=== PATIENT | female | born 1965 | race Caucasian/White ===

== ENCOUNTER 2017-06-04 21:11 | Emergency (ER) | payer MEDICAID, OTHER ==
[2017-06-04 21:45] LABS: BASO % 0.2 % (0.0-2.0); EOS # 0.1 K/uL (0.0-0.7); EOS % 0.6 % (0.0-4.0); HEMATOCRIT 35.7 % (34.0-47.0); LYMPH # 2.5 K/uL (1.0-4.3); LYMPH % 16.9 % (20.0-40.0); MEAN CELL VOLUME 73.8 fL (81.0-99.0); MEAN CORPUSCULAR HGB CONC 31.2 g/dL (33.0-37.0); MEAN PLATELET VOLUME 9.6 fL (7.2-11.7); MONO # 1.9 K/uL (0.0-0.8); MONO % 12.6 % (0.0-10.0); RED CELL DISTRIBUTION WIDTH 14.9 % (11.5-14.5); WHITE BLOOD COUNT 14.9 K/uL (4.8-10.8)
--- NOTE | 2017-06-04 21:47 | C.PDOC ---
History Of Present Illness 52 y/o female with a hx of thyroidectomy and a thyroid nodule, c/o anxiety and trouble breathing that began tonight. Patient reports yesterday she was caught in the rain and developed body aches, chills, fever, and sore throat. Then tonight while chewing she felt numbness to the right side of her face and felt and pain to the submandibular area. Patient notes having a hx of anxiety in the past with similar symptoms. Denies chest pain, palpitations, lightheadedness, diaphoresis, lower extremity swelling or pain, or jaw pain. Time Seen by Provider: 06/04/17 21:19 Chief Complaint (Nursing): Shortness Of Breath History Per: Patient History/Exam Limitations: no limitations Onset/Duration Of Symptoms: Hrs (Tonight) Current Symptoms Are (Timing): Still Present Severity: Mild Recent travel outside of the [place]: No Additional History Per: Patient Past Medical History Reviewed: Historical Data, Nursing Documentation, Vital Signs Vital Signs: Last Vital Signs Temp Pulse 104 H 06/04/17 21:17 Resp 20 06/04/17 21:39 BP 115/75 06/04/17 21:17 Pulse Ox 100 06/04/17 23:24 - Medical History PMH: HTN Family History: States: Unknown Family Hx - Social History Hx Alcohol Use: No Hx Substance Use: No Review Of Systems Except As Marked, All Systems Reviewed And Found Negative. Constitutional: Positive for: Fever, Chills, Other (Body aches). Negative for: Sweats ENT: Positive for: Throat Pain, Other Cardiovascular: Negative for: Chest Pain, Palpitations, Light Headedness Respiratory: Positive for: Shortness of Breath Musculoskeletal: Negative for: Leg Pain, Foot Pain Psych: Positive for: Anxiety Physical Exam - Physical Exam Appears: Non-toxic, No Acute Distress Skin: Warm, Dry Head: Atraumatic, Normacephalic Eye(s): bilateral: Normal Inspection Ear(s): Bilateral: Normal Throat: Other (Throat inflammation) Lymphatic: Other (Submandibular nodes swelling and tenderness, more so on the right.) Cardiovascular: Rhythm Regular Respiratory: Normal Breath Sounds, No Rales, No Rhonchi, No Wheezing Gastrointestinal/Abdominal: Soft, No Tenderness Neurological/Psych: Oriented x3 ED Course And Treatment - Laboratory Results Result Diagrams: 06/04/17 21:36 06/04/17 21:36 Lab Interpretation: No Acute Changes (Mildly elevated WBC 14.9 with normal diff. ) O2 Sat by Pulse Oximetry: 100 (RA) Pulse Ox Interpretation: Normal - Radiology CXR: Interpreted by Me CXR Interpretation: Yes: No Acute Disease - CT Scan/US Neck Other Rad Studies (CT/US): Interpreted By Me, Read By Radiologist CT/US Interpretation: EXAM: CT Neck With Intravenous Contrast. CLINICAL HISTORY: 52 years old, female; Pain; Neck pain; Prior surgery; Surgery type: Thyroidectomy; Additional info: S/P thyroidectomy, neck pain. TECHNIQUE: Axial computed tomography images of the neck with intravenous contrast. All CT scans at this. facility use one or more dose reduction techniques, viz.: automated exposure control; ma/kV. adjustment per patient size (including targeted exams where dose is matched to indication; i.e. head);. or iterative reconstruction technique. Coronal and sagittal reformatted images were created and reviewed. CONTRAST: 100 mL of [id number] administered intravenously. COMPARISON: No relevant prior studies available. FINDINGS: Nasopharynx: Unremarkable. Oropharynx: Unremarkable. No significant tonsillar enlargement. No peritonsillar abscess. Hypopharynx: Unremarkable. Larynx: Unremarkable. Normal epiglottis. Trachea: Unremarkable. Retropharyngeal space: Unremarkable. Submandibular/parotid glands: Unremarkable. Glands are normal in size. Thyroid: Surgically absent. Bones/joints: No acute fracture. Soft tissues: Unremarkable. Vasculature: No acute findings. Lymph nodes: Unremarkable. No lymphadenopathy. Lung apices: Unremarkable as visualized. IMPRESSION: No significant pathology, as detailed above. Reevaluation Time: 23:26 Reassessment Condition: Improved (Patient remains comfortable in ED.) Medical Decision Making Medical Decision Making: Impression: * Anxiety and trouble breathing that began tonight. Plans: * CT neck soft tissue w/ constrast * Blood labs * CXR * Rapid strep Disposition Counseled Patient/Family Regarding: Studies Performed, Diagnosis, Need For Followup - Disposition Referrals: [facility] [Outside] Disposition: HOME/ ROUTINE Disposition Time: 23:26 Condition: IMPROVED Instructions: Upper Respiratory Infection (ED) Forms: [facility] (French) - Clinical Impression Clinical Impression: Dyspnea, URI (upper respiratory infection) - Scribe Statement The provider has reviewed the documentation as recorded by the Scribe Mohamed stephanie All medical record entries made by the Wisam were at my direction and personally dictated by me. I have reviewed the chart and agree that the record accurately reflects my personal performance of the history, physical exam, medical decision making, and the department course for this patient. I have also personally directed, reviewed, and agree with the discharge instructions and disposition.
[2017-06-04 21:51] LABS: CHLORIDE 96 mmol/L (98-107)
[2017-06-04 21:52] LABS: POTASSIUM 3.9 mmol/L (3.6-5.2); SODIUM 132 mmol/L (132-148)
[2017-06-04 21:54] LABS: AST/SGOT 24 U/L (14-36); BILIRUBIN,TOTAL 0.4 mg/dL (0.2-1.3); CARBON DIOXIDE 23 mmol/L (22-30); GFR AFRICAN-AMERICAN > 60
[2017-06-04 21:55] LABS: ALB/GLOB RATIO 1.1 (1.0-2.1); ALKALINE PHOSPHATASE 85 U/L (38-126); ALT/SGPT 24 U/L (9-52); BLOOD UREA NITROGEN 12 mg/dL (7-17); CALCIUM 9.1 mg/dl (8.6-10.4); GLUCOSE,RANDOM 106 mg/dL (65-105); TOTAL PROTEIN 8.5 g/dL (6.3-8.3)
[2017-06-04 22:37] LABS: FREE T4 1.78 ng/dL (0.78-2.19)
[2017-06-04 22:51] LABS: THYROID STIMULATING HORMONE < 0.02 mIU/L (0.46-4.68)
--- NOTE | 2017-06-04 23:16 | CT ---
EXAM: CT Neck With Intravenous Contrast CLINICAL HISTORY: 52 years old, female; Pain; Neck pain; Prior surgery; Surgery type: Thyroidectomy; Additional info: S/P thyroidectomy, neck pain TECHNIQUE: Axial computed tomography images of the neck with intravenous contrast. All CT scans at this facility use one or more dose reduction techniques, viz.: automated exposure control; ma/kV adjustment per patient size (including targeted exams where dose is matched to indication; i.e. head); or iterative reconstruction technique. Coronal and sagittal reformatted images were created and reviewed. CONTRAST: 100 mL of [id number] administered intravenously. COMPARISON: No relevant prior studies available. FINDINGS: Nasopharynx: Unremarkable. Oropharynx: Unremarkable. No significant tonsillar enlargement. No peritonsillar abscess. Hypopharynx: Unremarkable. Larynx: Unremarkable. Normal epiglottis. Trachea: Unremarkable. Retropharyngeal space: Unremarkable. Submandibular/parotid glands: Unremarkable. Glands are normal in size. Thyroid: Surgically absent. Bones/joints: No acute fracture. Soft tissues: Unremarkable. Vasculature: No acute findings. Lymph nodes: Unremarkable. No lymphadenopathy. Lung apices: Unremarkable as visualized. IMPRESSION: No significant pathology, as detailed above.
[2017-06-04 23:48] VITALS: BP 107/69; PULSE 93; RESP 18; TEMP 98.8; O2SAT 97
--- NOTE | 2017-06-05 08:44 | RAD ---
HISTORY: Shortness of breath COMPARISON: No prior. TECHNIQUE: Chest PA and lateral FINDINGS: LUNGS: No active pulmonary disease. PLEURA: No significant pleural effusion identified. No pneumothorax apparent. CARDIOVASCULAR: Normal. OSSEOUS STRUCTURES: No significant abnormalities. VISUALIZED UPPER ABDOMEN: Normal. OTHER FINDINGS: None. IMPRESSION: No active disease.
== END 2017-06-04 23:52 | disposition home or self-care (01) ==
LOC: C.ER 21:11
DX: R06.00 Dyspnea, unspecified (principal); J06.9 Acute upper respiratory infection, unspecified